=== PATIENT | male | born 1970 | race Caucasian/White ===

== ENCOUNTER 2017-11-01 19:28 | Inpatient (IN) | payer BC ==
[2017-11-01 20:05] LABS: #Basophils 0.1 thou/uL (0.0-0.2); #Eosinphils 0.1 thou/uL (0.0-0.7); #Lymphocytes 1.8 thou/uL (1.20-3.40); #Neutrophils 7.8 thou/uL (1.40-6.50); %Basophils 0.6 % (0.0-1.0); %Lymphocytes 17.1 % (21.0-51.0); %Neutrophils 72.3 % (42.0-75.0); Hemoglobin 14.7 g/dL (14.0-18.0); Mean Corpuscular HGB CONC 35.6 g/dL (32.0-36.0); Mean Corpuscular Hemoglobin 34.5 pg (27.0-31.0); Mean Corpuscular Volume 97.1 fl (80.0-94.0); Platelet Count 182 thou/uL (130-400); RBC Distribution Width 11.5 % (11.5-14.5); Red Blood Cell (RBC) Count 4.27 mill/uL (4.70-6.10); White Blood Cell (WBC) Count 10.7 thou/uL (4.8-10.8)
[2017-11-01 20:26] LABS: ALT (SGPT) 31 U/L (8-55); AST (SGOT) 29 U/L (5-34); Albumin 3.9 g/dL (3.5-5.0); Alkaline Phosphatase 85 U/L (40-150); Anion Gap 21 mmol/L (10-20); BUN (Urea Nitrogen) 45 mg/dL (8.9-20.6); Bilirubin, Total 0.9 mg/dL (0.2-1.2); CRP (Inflammatory) 1.57 mg/dL (= or < 0.5); Calc. Creatinine Clearance 0 mL/min (70-130); Calcium 8.3 mg/dL (7.8-10.44); Carbon Dioxide 14 mmol/L (22-29); Chloride 93 mmol/L (98-107); Estimated GFR-MDRD 12; Globulin 2.7 g/dL (2.4-3.5); Glucose 92 mg/dL (70-105); Potassium 4.3 mmol/L (3.5-5.1); Protein, Total 6.6 g/dL (6.0-8.3); Sodium 124 mmol/L (136-145)
[2017-11-01 20:30] LABS: CKMB 5.4 ng/mL (0-6.6); Troponin I Less than 0.010 ng/mL (< 0.028)
[2017-11-01] MEDS ORDERED: HYDROcodone/Acetaminophen 5/325 mg Tablet ONE (21:42)
[2017-11-01 22:50] LABS: Bilirubin Negative (Negative); Blood, Urine Moderate (Negative); Clarity CLOUDY (Clear); Glucose, Urine (Dipstick) Negative (Negative); Leukocyte Negative (Negative); Nitrite Negative (Negative); Protein, Urine (Dipstick) Trace mg/dL (Neg-Trace); Specific Gravity, Urine 1.011 (1.002-1.036); Urobilinogen 0.2 mg/dL (0.2-1.0)
[2017-11-01 22:57] LABS: Pathc Cast-AUWi Flag 3.92 (0-2.49)
[2017-11-01] MEDS ORDERED: Acetaminophen 325 MG TAB PO PRN (23:03)
[2017-11-01 23:08] LABS: Bacteria/HPF None Seen HPF (None Seen); Hyaline Casts/LPF 7-10 HYALINE CAST LPF (0-3 Hyaline); Squamous Epithelial 0-3 HPF (0-3)
[2017-11-01] MEDS ORDERED: Sodium Chloride 0.9% 1,000 ML IV SCH (23:15)
[2017-11-01] MEDS ORDERED: Ondansetron HCl/PF 4 MG/2 ML Vial IVP PRN (23:23)
[2017-11-01] MEDS ORDERED: Ondansetron ODT 4 MG TAB SL PRN (23:23)
[2017-11-01 23:25] VITALS: BMI 39.5
[2017-11-02] MEDS: Lactated Ringer's 1,000 ML IV SCH ×3 (00:27→09:36)
--- NOTE | 2017-11-02 03:22 | HP ---
DATE OF ADMISSION: 11/01/2017 PRIMARY CARE PROVIDER: [facility] physician. CHIEF COMPLAINT: Generalized weakness. HISTORY OF PRESENT ILLNESS: Patient is a very pleasant 47-year-old male who comes into the hospital, complaints of generalized weakness. 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 Patient also states that he has not urinated for the past 2 day s. Patient denies any fevers or chills. Patient did state that he did have some nausea, however, an d some mild vomiting today. Patient stated that today he was going out with his family felt really w eak and almost his legs gave out and fell to the bottom of the floor. Patient denied any head injury . Patient states that this has happened to him in the past. He gets dehydrated very easily. PAST MEDICAL HISTORY: He has a history of arthritis and hypertension. PAST SURGICAL HISTORY: He had bilateral knee surgeries, arthroscopy. SOCIAL HISTORY: He drinks every day about 4-5 beers a day. Denies any smoking or any other recreati onal drug use; however, he does chew tobacco. ALLERGIES: He is allergic to SULFA. CURRENT MEDICATIONS: He takes lisinopril 40 mg daily. PHYSICAL EXAMINATION: VITAL SIGNS: In the emergency room, his temperature was 98.6, respirations was 17, his blood pressur e was 114/75, heart rate was 81. GENERAL: Patient is awake, alert, oriented x3, appears to be flushed in the face and is an obese mal e. CARDIOVASCULAR: S1, S2 present. No murmurs, rubs, or gallops. LUNGS: Clear to auscultation. No rhonchi, wheezes noted. ABDOMEN: Obese. Bowel sounds are present x2. No hepatomegaly or splenomegaly is appreciated. EXTREMITIES: Lower extremity, no edema. Pedal pulses are present x2. LABORATORY DATA: As following: WBC of 10.7, hemoglobin of 14.7, hematocrit of 41.4, platelets of 18 2. Chemistry: Sodium of 124, potassium of 4.3, BUN of 45, creatinine of 5.12. LFTs are normal. Tr oponin x1 is negative. CK is 510. ASSESSMENT AND PLAN: Patient is a very pleasant 47-year-old male who presents to the hospital with c omplaints of generalized weakness. 1. Acute kidney injury most likely secondary to prerenal dehydration. We will start patient on some gentle IV hydration. Patient has a Markham catheter and we will monitor strict I's and O's. Nephrolo gy has already been consulted. We will check urine sodium and urine creatinine to calculate FENa. R enal ultrasound has been ordered, but has not been completed as of yet. 2. Hyponatremia, most likely secondary to hypo-osmolar. We will check a serum osmolality and contin ue to monitor. 3. Mild elevated CK. Patient's hydration with IV fluids most likely will resolve that. 4. Morbid obesity. Patient will need education on diet and exercise and weight loss. 5. Deep venous thrombosis prophylaxis. We will put patient on subcutaneous heparin.
[2017-11-02 06:56] LABS: #Basophils 0.1 thou/uL (0.0-0.2); #Eosinphils 0.2 thou/uL (0.0-0.7); #Lymphocytes 2.4 thou/uL (1.20-3.40); #Neutrophils 4.6 thou/uL (1.40-6.50); %Basophils 0.7 % (0.0-1.0); %Eosinophils 2.5 % (0.0-10.0); %Lymphocytes 29.4 % (21.0-51.0); %Monocytes 11.8 % (0.0-10.0); %Neutrophils 55.6 % (42.0-75.0); Hemoglobin 14.5 g/dL (14.0-18.0); Mean Corpuscular HGB CONC 35.5 g/dL (32.0-36.0); Mean Corpuscular Hemoglobin 34.7 pg (27.0-31.0); Mean Corpuscular Volume 97.9 fl (80.0-94.0); Platelet Count 165 thou/uL (130-400); RBC Distribution Width 11.5 % (11.5-14.5); Red Blood Cell (RBC) Count 4.16 mill/uL (4.70-6.10); White Blood Cell (WBC) Count 8.2 thou/uL (4.8-10.8)
[2017-11-02 07:23] LABS: Anion Gap 17 mmol/L (10-20); BUN (Urea Nitrogen) 42 mg/dL (8.9-20.6); Calc. Creatinine Clearance 61 mL/min (70-130); Calcium 7.9 mg/dL (7.8-10.44); Carbon Dioxide 12 mmol/L (22-29); Chloride 104 mmol/L (98-107); Estimated GFR-MDRD 26; Glucose 96 mg/dL (70-105); Potassium 4.3 mmol/L (3.5-5.1); Sodium 129 mmol/L (136-145)
[2017-11-02] MEDS: Sodium Chloride 0.9% 1,000 ML IV SCH (09:49)
[2017-11-02] MEDS: Heparin 5,000 UNITS/ML VIAL SC SCH ×3 (09:50→21:13)
--- NOTE | 2017-11-02 13:10 | ULT ---
ULTRASOUND RETROPERITONEUM COMPLETE: (RENAL) HISTORY: A 47-year-old male with acute renal failure. FINDINGS: The right kidney measures 11.5 x 6.5 x 6.5 cm. The left kidney measures 11 x 5.5 x 6.5 cm. Both kid neys have normal cortical thickness and normal cortical echogenicity. There is no hydronephrosis. T here is a Markham catheter in an empty urinary bladder. IMPRESSION: 1) Normal sonographic appearance of the kidneys. 2) Markham catheter within empty bladder. ciara [] POS: BINA
--- NOTE | 2017-11-02 14:16 | PDOC.PN ---
- Subjective Encounter Start Date: 11/02/17 Encounter Start Time: 14:16 Patient seen and examined, states that he keeps flushed and has cramping pain in his legs and also loose stools from time to time, no other issues or complaints. Patient seen and examined, all questions answered. - Objective Resuscitation Status: Resuscitation Status FULL:Full Resuscitation Vital Signs & Weight: Weight Weight 273 lb 9 oz I&O: 11/01/17 11/02/17 11/03/17 06:59 06:59 06:59 Intake Total 1480 Output Total 2390 Balance -910 Result Diagrams: 11/02/17 06:21 11/02/17 06:21 Phys Exam - Physical Examination Constitutional: NAD obese HEENT: PERRLA, moist MMs, sclera anicteric Neck: no nodes, no JVD, supple Respiratory: no wheezing, no rales, no rhonchi Cardiovascular: RRR, no significant murmur, no rub Gastrointestinal: soft, non-tender, no distention Musculoskeletal: pulses present, edema present (race) Neurological: non-focal, normal sensation Psychiatric: normal affect, A&O x 3 Dx/Plan (1) Rhabdomyolysis Code(s): M62.82 - RHABDOMYOLYSIS Status: Acute (2) Acute kidney injury Code(s): N17.9 - ACUTE KIDNEY FAILURE, UNSPECIFIED Status: Acute (3) Hypertension Code(s): I10 - ESSENTIAL (PRIMARY) HYPERTENSION Status: Acute (4) Abdominal pain Code(s): R10.9 - UNSPECIFIED ABDOMINAL PAIN Status: Acute - Plan - will obtain CT of abdomen with oral contrast - target SBP 120-140mmHg - change to atorvastatin - Cr improving - DC plans in AM if patient stable and ok with subspecialist - case and plan d/w patient and family at length, they understand and agree with this plan
--- NOTE | 2017-11-02 18:47 | CT ---
CT ABDOMEN AND PELVIS WITHOUT IV CONTRAST: History: Abdominal pain, right upper quadrant and right lower quadrant. FINDINGS: Absence of IV contrast limits the sensitivity of the exam for evaluation of solid organs and bowel. The lung bases are unremarkable. No free air or free fluid is seen in the abdomen or pelvis. No calci fied gallstones are noted. No calculi are seen in the kidneys, ureters, or urinary bladder. No hydrou reter or nephrosis is seen. Normal appearing appendix is present. A moderate sized hiatal hernia is p resent. There are vascular calcifications without aneurysmal dilatation of the abdominal aorta. Degen erative changes are present in the spine. There is a Markham catheter in the urinary bladder. IMPRESSION: 1. Hiatal hernia. 2. No CT evidence of urinary calculi or obstruction. 3. No evidence of appendicitis. POS: BINA
[2017-11-02] MEDS ORDERED: Rosuvastatin 20 MG TAB PO SCH (21:00)
[2017-11-02] MEDS ORDERED: Atorvastatin Calcium 40 MG TAB PO SCH (21:00)
[2017-11-03 05:52] LABS: Anion Gap 12 mmol/L (10-20); BUN (Urea Nitrogen) 18 mg/dL (8.9-20.6); Calc. Creatinine Clearance 217 mL/min (70-130); Calcium 8.3 mg/dL (7.8-10.44); Carbon Dioxide 18 mmol/L (22-29); Chloride 111 mmol/L (98-107); Estimated GFR-MDRD Greater than 90; Glucose 89 mg/dL (70-105); Potassium 4.5 mmol/L (3.5-5.1); Sodium 136 mmol/L (136-145)
--- NOTE | 2017-11-03 08:52 | PRG ---
DATE OF SERVICE: 11/03/2017 SUBJECTIVE: Mr. Kapoor is a 47-year-old white man seen for an acute kidney injury that was hemodyna mically mediated renal dysfunction. His lisinopril and Celebrex was discontinued. He receive IV hyd ration and this has improved his renal function to normal. The initial renal ultrasound showed brendan l appearing kidneys. In addition, a CT scan of the abdomen and pelvis was also done which showed a h iatal hernia with no evidence of any renal stone. This morning he is feeling better, denies any chest pain, shortness of breath. PHYSICAL EXAMINATION: VITAL SIGNS: Blood pressure is 104/54, heart rate 67, respiratory rate 18, temperature 97.6. GENERAL: Awake, alert, comfortable, not in distress. SKIN: Adequate turgor. HEENT: He has pinkish conjunctivae, anicteric sclerae. NECK: No neck mass, no carotid bruits, no JVD. CHEST: No deformities. LUNGS: Clear breath sounds, no wheezing, no crackles. HEART: Normal sinus rhythm. No murmur, no gallops or rubs. ABDOMEN: Globular, soft, nontender. No masses. EXTREMITIES: No edema, no deformities. MEDICATIONS: 11/03/2017 - Reviewed. LABORATORY: 11/03/2017 - Sodium 136, potassium 4.5, chloride 111, carbon dioxide 18, BUN 18, creatin ine 0.74, calcium 8.3. ASSESSMENT AND PLAN: 1. Acute kidney injury - hemodynamically mediated renal dysfunction secondary to the use of Celebrex , volume depletion, as well as lisinopril. His renal function is now within normal. My bias is not to resume lisinopril, but maintain him on nifedipine. He was also counseled on the judicious use of his Celebrex. 2. Hypertension, good control. Continue current blood pressure medications. 3. Degenerative joint disease. Supportive care. 4. Metabolic acidosis, much improved with improving renal function. From a renal point of view, this patient can be discharged. He is requested to follow up with his PC P.
[2017-11-03] MEDS ORDERED: Allopurinol 100 MG TAB PO SCH (09:00)
[2017-11-03] MEDS ORDERED: Lisinopril 20 MG TAB PO SCH (09:00)
[2017-11-03] MEDS ORDERED: NIFEdipine XL 30 MG TAB PO SCH (09:00)
[2017-11-03] MEDS ORDERED: DULoxetine 30 MG CAP PO SCH (09:00)
[2017-11-03] MEDS ORDERED: Propranolol HCl LA 80 MG CAP PO SCH (09:00)
[2017-11-03] MEDS: Sodium Chloride 0.9% 1,000 ML IV SCH (09:27)
[2017-11-03] MEDS: Heparin 5,000 UNITS/ML VIAL SC SCH (09:30)
--- NOTE | 2017-11-03 10:05 | PDOC.EVN ---
Event Note - Event Note Event Note: DC SUMMARY #[id number]
[2017-11-03 12:19] VITALS: BP 125/75; TEMP 98.7
--- NOTE | 2017-11-03 13:29 | DIS ---
DATE OF ADMISSION: 11/01/2017 DATE OF DISCHARGE: 11/03/2017 ADMITTING DIAGNOSES: Acute kidney injury, rhabdomyolysis, hyponatremia secondary to hyperosmolar, ge neralized weakness, morbid obesity, hypertension, arthritis and gout. DISCHARGE DIAGNOSES: 1. Acute renal failure, resolved. 2. Rhabdomyolysis, resolved. 3. Hyponatremia, resolved. 4. Generalized weakness, resolved. 5. Arthritis. 6. Gout. 7. Hypertension. 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 Creatinine was found to be 5. The patient was started on IV fluids, had resolution of his kidney injury as well as generalized weakness and other complaints of nausea. The patient states that he has also been suffering from a severe significant cramping in his legs ever since he started on a recent statin medication. The pat ient upon the time of discharge denied any nausea, vomiting, diarrhea, constipation, chest pain, feve rs, chills or shortness of breath. The patient's creatinine had come down to 0.74 from a high of 5.1 2. Sodium levels had also come up to 136. The patient was advised to drink large amounts of water a s he probably had acute tubular necrosis and would be suffering from post-ATN diuresis as renal recov denis occurred. The patient was advised to drink enough water to keep his urine clear and also to use that as an indicative standard for if he is well hydrated or not while he is working outside. Urinal ysis showed positive for hyaline cast, blood as well as WBCs and RBCs; however, this was not inconclu sive. Urine osmolality was 178. Again, inconclusive given acute kidney injury. At this point in ti me of discharge, the patient had no complaints, was ready to go home. The patient was given a prescr iption for rosuvastatin at 10 mg. Advised weight loss, change in dietary and exercise regime and fol low up with PCP within 2 weeks. The case and plan discussed with the patient at length. He and agreed understood the plan. DISPOSITION: Home. FOLLOWUP: Follow up with PCP in 2 weeks. ACTIVITY: As tolerated with assistance. DIET: Low fat, low calorie, high fiber, preferably vegetarian diet. CONDITION: Stable. PROGNOSIS: Good. MEDICATIONS: Prescription for rosuvastatin given. Otherwise, medications adjusted accordingly. Ple ase review MAR for further details.
--- NOTE | 2017-11-03 14:40 | CON ---
DATE OF CONSULTATION: 11/02/2017 HISTORY OF PRESENT ILLNESS: Mr. Kapoor is a 47-year-old white male, who presented with generalized weakness. He was complaining of nausea and vomiting. During the initial evaluation, the patient was noted to be in acute kidney injury and was mildly hyponatremic. We are now being consulted for furt her management of his acute renal dysfunction. I did discuss the case with Dr. Tan, the ER physi kunal. We empirically volume repleted the patient. We felt that this is related to his underlying vo lume depletion. REVIEW OF SYSTEMS: No chest pain. Positive for nausea and vomiting. No diarrhea. No constipation. No productive cough. Denies any fever or chills. No headache. Occasional joint pains. No [place] in rash. No abdominal pain. No shortness of breath. No syncopal episode. No hematochezia, no [place] na, no hematemesis. Appetite and energy level is decreased. No diplopia. No sore throat. MEDICATIONS: The patient is currently on Zyloprim 200 mg daily, Lipitor 40 mg at bedtime, Cymbalta 3 0 mg daily, heparin 5,000 units subcutaneously t.i.d., lisinopril 20 mg tablet -- placed on hold, pro pranolol LA 80 mg once a day, normal saline 150 mL/hour. PAST MEDICAL HISTORY: 1. Hypertension. 2. Recent diagnosis of acute kidney injury. 3. Gout. 4. GERD. 5. Depression. 6. Hyperlipidemia. 7. DJD. PAST SURGICAL HISTORY: Bilateral arthroscopic surgery. SOCIAL HISTORY: The patient lives in [place]. He is , 2 children. He smoked for 4 year s, 1 pack a day. 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 Alcohol, 6 to 7 beers per day. No IV drug abuse. No blood transfusion. Education, high school. Active lifestyle. ALLERGIES: SULFA. TRAUMA: None. IMMUNIZATION: Not up-to-date. HOSPITALIZATIONS: Please see past medical history. FAMILY HISTORY: No family history of ESRD. PHYSICAL EXAMINATION: VITAL SIGNS: Blood pressure 114/54, heart rate 71, respiratory rate 16, pulse ox 92% on room air, an d temperature 97.7. GENERAL: Noted to be awake, alert, comfortable, not in distress, morbidly obese. SKIN: Adequate turgor. HEENT: Pinkish conjunctivae. Anicteric sclerae. No neck mass. No carotid bruits. No JVD. CHEST: No deformities. LUNGS: Clear breath sounds. No wheezing. No crackles. HEART: Normal sinus rhythm. No murmurs, no gallops, no rubs. ABDOMEN: Globular, soft, nontender, no masses. EXTREMITIES: No edema. No deformities. NEUROLOGIC: Awake and oriented to 3 spheres. Moving all extremities. No tremors. No asterixis. LABORATORY DATA: Laboratories of 11/01/2017: White count 10.7, hemoglobin 14.7. On 11/02/2017: White count 8.2, hemoglobin 14.5. On 11/01/2017: Sodium 124, chloride is 93, carbon dioxide 14, potassium 4.3, BUN 45, creatinine 5.12 , calcium 8.3, glucose 92, albumin 3.9, CK 510, C-reactive protein 1.57, troponin less than 0.01. On 11/02/2017: Sodium 129, potassium 4.3, chloride 104, carbon dioxide 12, BUN 42, creatinine 2.64, calcium 7.9. Urinalysis: Urine sediment shows specific gravity 1.011, rbc 7 to 10, wbc 4 to 6, no pigmented granu lar casts, there is trace protein, urine sodium is 24 and urine creatinine is 74. ASSESSMENT AND PLAN: 1. Acute kidney injury -- relatively benign urine sediment except for the finding of hematuria and p yuria. This may be related from the insertion of Markham catheter. He did not show any evidence of pi gmented granular casts. My feeling is that acute kidney injury is hemodynamically mediated renal dys function. Please note, the patient had nausea and vomiting, at the same time he was taking lisinopri l and Celebrex. I will be discontinuing the lisinopril completely until he recovers to a normal fawn l function. We will agree to hold off Celebrex. Renal ultrasound will also be ordered with this pat ient. 2. Hyponatremia -- I suspect this is secondary to hypovolemic hyponatremia. 3. Hypertension -- lisinopril will be discontinued and nifedipine will be initiated at 30 mg XL tabl et to replace the lisinopril. I had a long discussion with the patient and regarding diagnosis and prognosis.
== END 2017-11-03 12:42 | disposition home or self-care (01) | DRG 683 ==
LOC: ERS 19:28 → 2NO 21:10
PROVIDERS: ADMIT Internal Medicine; ATTEND Internal Medicine
DX: N17.0 Acute kidney failure with tubular necrosis (principal); M62.82 Rhabdomyolysis; E87.0 Hyperosmolality and hypernatremia; E66.01 Morbid (severe) obesity due to excess calories; E87.1 Hypo-osmolality and hyponatremia; E86.0 Dehydration; I10 Essential (primary) hypertension; Z72.0 Tobacco use; Z88.2 Allergy status to sulfonamides; Z68.39 Body mass index [BMI] 39.0-39.9, adult; M10.9 Gout, unspecified; R82.99 Other abnormal findings in urine; E78.5 Hyperlipidemia, unspecified
CPT/HCPCS: 36415; 51703; 74176; 76770; 80048; 80053; 81003; 81015; 82553; 82570; 83690; 83930; 83935; 84300; 84484; 85025; 86140; 93005; 96360; 99406; J1644